=== PATIENT | male | born 1945 | race Caucasian/White ===

== ENCOUNTER 2022-05-30 20:01 | Inpatient (IN) | payer MEDICARE ==
[~2022-05-30] VITALS: Ht 185.4 cm; Wt 119.7 kg
[~2022-05-30 20:01] MED LIST: ALBU0.0912 INH; ASPI-1205 PO; DEC1 PO
[2022-05-30 20:09] VITALS: BP 152/84
--- NOTE | 2022-05-30 20:31 | NUR ---
Patient ambulated to bed 1.
--- NOTE | 2022-05-30 20:33 | NUR ---
DR DAVENPORT AT BEDSIDE FOR EXAM
--- NOTE | 2022-05-30 20:37 | NUR ---
C/O COVID-19 SX X 1 DAY. PT STATES HISTORT OF COVID MORE THAN 1 YEAR AGO AND SAYS HE WAS HOSPITALIZED. C/O H/A, SOB, COUGH, AND FEVER SINCE RESPIRATIONS ARE NOW REGULAR AND UNLABORED PMHx: DENIES
[2022-05-30 21:06] LABS: BASOPHILS # (AUTO) 0.1 K/uL (0.00-0.22); EOSINOPHILS # (AUTO) 0.1 K/uL (0-0.4); EOSINOPHILS % (AUTO) 1.3 % (0.0-4.0); HEMOGLOBIN 15.9 g/dL (12.0-18.0); LYMPHOCYTES # (AUTO) 0.8 K/uL (2.0-11.5); LYMPHOCYTES % (AUTO) 10.1 % (20.5-51.1); MEAN CORPUSCULAR HEMOGLOBIN 28 pg (27-31); MEAN CORPUSCULAR HGB CONC 33 g/dL (33-37); MEAN CORPUSCULAR VOLUME 84.9 fL (80-94); MONOCYTES # (AUTO) 1.2 K/uL (0.8-1.0); MONOCYTES % (AUTO) 15.2 % (1.7-9.3); NEUTROPHILS # (AUTO) 5.6 K/uL (1.8-7.7); NEUTROPHILS % (AUTO) 72.4 % (42.2-75.2); PLATELET COUNT (AUTO) 185 K/uL (140-450); RED BLOOD CELL COUNT(AUTO) 5.65 MIL/uL (4.20-6.10); RED CELL DISTRIBUTION WIDTH 14.5 % (11.6-13.7); WHITE BLOOD COUNT (AUTO) 7.8 K/uL (4.8-10.8)
[2022-05-30 21:26] LABS: ALBUMIN 3.5 g/dL (3.4-5.0); ANION GAP 15.6 (8-16); ASPARTATE AMINOTRANSFERASE 20 U/L (15-37); CARBON DIOXIDE 25.2 mmol/L (21-32); CHLORIDE 105 mmol/L (98-107); GLUCOSE 159 mg/dL (74-106); POTASSIUM 3.8 mmol/L (3.5-5.1); SODIUM SERUM 142 mmol/L (136-145); TOTAL BILIRUBIN 0.7 mg/dL (0.0-1.0); UREA NITROGEN, BLOOD 14 mg/dL (7-18)
[2022-05-30] MEDS ORDERED: cefTRIAXone 1,000 MG VIAL ONE (21:31)
[2022-05-30] MEDS ORDERED: ALBUTEROL HFA MDI 90 MCG/ACTUATION 8 GM INH PRN (21:55)
[2022-05-30] MEDS ORDERED: guaiFENesin DM 200/20 MG-10 ML 10 ML UDC PO PRN (21:55)
[2022-05-30] MEDS ORDERED: POTASSIUM CHLORIDE 10 MEQ TABER PO PRN (21:55)
[2022-05-30] MEDS ORDERED: ZOLPIDEM 5 MG TAB PO PRN (21:55)
[2022-05-30] MEDS ORDERED: DOCUSATE SODIUM 100 MG GELCAP PO PRN (21:55)
[2022-05-30] MEDS ORDERED: HYDROcodone/APAP 7.5/325 MG 1 TAB PO PRN (21:55)
[2022-05-30] MEDS ORDERED: ONDANSETRON 4 MG/2 ML VIAL IM/IVP PRN (21:55)
[2022-05-30] MEDS ORDERED: ACETAMINOPHEN 325 MG TAB PO PRN (21:55)
--- NOTE | 2022-05-30 23:10 | NUR ---
SWABS OBTAINED AND SENT TO LAB
[2022-05-30 23:17] LABS: MAGNESIUM 1.8 mg/dL (1.8-2.4); PHOSPHORUS 2.4 mg/dL (2.5-4.9)
--- NOTE | 2022-05-31 | NUR ---
ASSISTED WITH POSITIONING FOR COMFORT. WARM BLANKETS GIVEN, LIGHTS TURNED DOWN
[2022-05-31 00:08] LABS: PROTHROMBIN TIME 11.2 secs (10.8-13.4)
--- NOTE | 2022-05-31 02:00 | NUR ---
RESTING COMFORTABLY WITH EYES CLOSED. RESPIRATIONS REGULAR AND UNLABORED
[2022-05-31 05:50] LABS: BASOPHILS # (AUTO) 0.1 K/uL (0.00-0.22); BASOPHILS % (AUTO) 0.9 % (0.0-2.0); EOSINOPHILS # (AUTO) 0.1 K/uL (0-0.4); EOSINOPHILS % (AUTO) 0.7 % (0.0-4.0); HEMATOCRIT 46.4 % (36-52); HEMOGLOBIN 15.4 g/dL (12.0-18.0); LYMPHOCYTES # (AUTO) 1.1 K/uL (2.0-11.5); LYMPHOCYTES % (AUTO) 14.7 % (20.5-51.1); MEAN CORPUSCULAR HEMOGLOBIN 28 pg (27-31); MEAN CORPUSCULAR HGB CONC 33 g/dL (33-37); MEAN CORPUSCULAR VOLUME 85.2 fL (80-94); MONOCYTES # (AUTO) 1.2 K/uL (0.8-1.0); MONOCYTES % (AUTO) 16.7 % (1.7-9.3); NEUTROPHILS # (AUTO) 4.9 K/uL (1.8-7.7); PLATELET COUNT (AUTO) 171 K/uL (140-450); RED BLOOD CELL COUNT(AUTO) 5.44 MIL/uL (4.20-6.10); RED CELL DISTRIBUTION WIDTH 14.2 % (11.6-13.7); WHITE BLOOD COUNT (AUTO) 7.3 K/uL (4.8-10.8)
[2022-05-31 05:52] LABS: ANION GAP 14.6 (8-16); CARBON DIOXIDE 26.1 mmol/L (21-32); CHLORIDE 105 mmol/L (98-107); CREATININE 0.8 mg/dL (0.6-1.3); GLUCOSE 133 mg/dL (74-106); POTASSIUM 3.7 mmol/L (3.5-5.1); SODIUM SERUM 142 mmol/L (136-145); UREA NITROGEN, BLOOD 13 mg/dL (7-18)
--- NOTE | 2022-05-31 06:00 | NUR ---
Edward eastman in ED - 05/31/22 at 0619 by JOVANNI RESTING IN BED WITH EYES CLOSED. RESPIRATIONS REGULAR AND UNLABORED. PT REMAINS ON C-PAP, TOLERATING WELL
--- NOTE | 2022-05-31 06:00 | NUR ---
RESTING COMFORTABLY WITH EYES CLOSED. AWAKENS WITH EASE THEN RETURNS TO RESTING WITH EYES CLOSED
--- NOTE | 2022-05-31 07:32 | NUR ---
RECIEVED REPORT FROM FITO CLEMENTS.
[2022-05-31] MEDS: ASCORBIC ACID 500 MG TAB PO SCH (10:00)
--- NOTE | 2022-05-31 10:00 | NUR ---
PATIENT HAS BEEN SCREENED AND CATEGORIZED LOW NUTRITION RISK. PATIENT WILL BE SEEN WITHIN 7 DAYS OF ADMISSION. 06/06/[address]
[2022-05-31] MEDS: ZINC SULF 220 MG CAP PO SCH (10:01)
[2022-05-31] MEDS: PANTOPRAZOLE 40 MG TABEC PO SCH (10:02)
[2022-05-31] MEDS: guaiFENesin 600 MG TABER PO SCH ×2 (12:26→20:08)
--- NOTE | 2022-05-31 14:22 | NUR ---
DC PLANNING: THE PATIENT PRESENTED WITH C/O FEVERS AND CHILLS, PRIOR H/O COVID PNEUMONIA AND ENLARGED PROSTATE. HR IN THE 90s, O2 2L NC WITH SATS AT 94%. CRP 9, STARTED ON DECADRON, ALBUTEROL, GIVEN ROCEPHIN X 1. COVID RAPID AND PCR POSITIVE, CXR PER ED NOTES SHOW POSSIBLE PATCHY INFILTRATES. CM SPOKE WITH THE PATIENTS SON LUNA BY PHONE AND CONFIRMED THE PATIENTS ADDRESS AND PHONE NUMBER. THE PATIENT LIVES WITH HIS , SON AND GRANDDAUGHTER IN A SINGLE STORY HOUSE. HE IS INDEPENDENT IN ALL ACTIVITIES INCLUDING AMBULATION AND ADL'S. HE NO LONGER HAS THE O2 FROM HIS LAST ADMISSION AND HAS NO OTHER DME IN THE HOUSE. NO H/O HOME HEALTH AND NO REPORTED WEAKNESS FROM HIS COVID DX. THE PATIENT WILL DC HOME WITH FAMILY WHEN CLINICALLY STABLE, NO NEEDS IDENTIFIED AT THIS TIME. CM WILL FOLLOW.
--- NOTE | 2022-05-31 17:59 | NUR ---
Patient will be admitted to care of DR BLACKMON. Admited to TELEMETRY. Will go to room 113. Belongings list completed. Report to
[2022-05-31 18:10] VITALS: BP 110/80
--- NOTE | 2022-05-31 18:10 | NUR ---
RECEIVED PT FROM ER VIA [facility]. REPORT GIVEN BY ANITA THRU PHONE. PT IS ALERT, AWAKE, ABLE TO MAKE NEEDS KNOWN. ON O2 2L NC, BREATHING SYMMETRICAL. NOTED WITH EPISODES OF DRY COUGH. NO C/O PAIN AT THIS TIME. LAC 18G ON SALINE LOCK. DROPLET PRECAUTIONS OBSERVED. CALL LIGHT WITHIN REACH. ALL SAFETY MEASURES IN PLACE.
--- NOTE | 2022-05-31 18:15 | NUR ---
TRIED TO GIVE REPORT TO GALLO AND SHE REFUSED. INTERNAL AUDIT CONSULTANT NOTFIED.
--- NOTE | 2022-05-31 19:14 | NUR ---
ENDORSED PT TO METAL OR WOOD BLOCKER NURSE FOR CONTINUITY OF CARE.
--- NOTE | 2022-05-31 19:15 | NUR ---
RECEIVED BEDSIDE REPORT FROM DAY RN. PT IS AAOX4. [place] SPEAKING UNDERSTANDS SOME ROMANSH. RESPIRATIONS ARE EQUAL AND UNLABORED ON 2L NC SAT WELL 97% +PRODUCTIVE COUGH. SKIN IS WARM DRY AND INTACT. PT IS AMBULATORY AND ABLE TO MAKE NEEDS KNOWN. IV ON LAC 18G SL. ISOLATION IN PLACE. POC REVIEWED WITH PT. ALL SAFETY MEASURES ARE IN PLACE. WILL CONTINUE TO MONITOR.
[2022-05-31 20:00] VITALS: BP 128/78
--- NOTE | 2022-05-31 20:08 | NUR ---
vital signs are stable. aster medications given per orders. vital signs are stable. educated pt for need to collect UA specimen cup given to pt. will continue to monitor.
[2022-05-31 21:35] LABS: BILIRUBIN,URINE NEGATIVE (NEGATIVE); BLOOD, URINE TRACE-I (NEGATIVE); COLOR,URINE YELLOW (YELLOW); LEUKOCYTE ESTERASE ,URINE TRACE (NEGATIVE); NITRITE, URINE NEGATIVE (NEGATIVE); UGLUCOSE NEGATIVE (NEGATIVE)
[2022-05-31 21:41] LABS: APPEARANCE,URINE HAZY (CLEAR)
[2022-05-31 21:51] LABS: RBC,URINE 0-5 /HPF (0-5); WBC,URINE 0-5 /HPF (0-5)
[2022-05-31 21:52] LABS: BARBITURATE, URINE NEGATIVE ng/ml (NEG <=200); BENZODIAZEPINE, URINE NEGATIVE ng/mL (NEG <=200); CANNABINOID, URINE NEGATIVE ng/mL (NEG <=50); COCAINE, URINE NEGATIVE ng/mL (NEG <=300); OPIATE, URINE NEGATIVE ng/mL (NEG <=2000); PHENCYCLIDINE SCREEN,URINE NEGATIVE ng/mL (NEG <=25)
--- NOTE | 2022-05-31 22:29 | NUR ---
ROUNDS MADE. PT RESTING IN BED TALKING ON THE PHONE. ALL NEEDS MET. WILL CONTINUE TO MONITOR
[2022-06-01] VITALS: BP 130/85
--- NOTE | 2022-06-01 00:02 | NUR ---
VITAL SIGNS ARE WITHIN NORMAL LIMITS. ALL SAFETY MEASURES ARE IN PLACE. WILL CONTINUE TO MONITOR.
--- NOTE | 2022-06-01 02:57 | NUR ---
ROUNDS MADE. PT APPEARS TO BE ASLEEP. RESTING IN BED WITH EYES CLOSED. CHEST RISE AND FALL NOTED.
[2022-06-01 04:00] VITALS: BP 141/86
--- NOTE | 2022-06-01 04:00 | NUR ---
VITAL SIGNS ARE WITHIN NORMAL LIMITS. ALL SAFETY MEASURES ARE IN PLACE. WILL CONTINUE TO MONITOR.
[2022-06-01 07:10] LABS: BASOPHILS % (AUTO) 0.4 % (0.0-2.0); EOSINOPHILS % (AUTO) 0.4 % (0.0-4.0); HEMATOCRIT 46.4 % (36-52); HEMOGLOBIN 15.6 g/dL (12.0-18.0); LYMPHOCYTES % (AUTO) 13.9 % (20.5-51.1); MEAN CORPUSCULAR HEMOGLOBIN 28 pg (27-31); MEAN CORPUSCULAR HGB CONC 34 g/dL (33-37); MEAN CORPUSCULAR VOLUME 84.5 fL (80-94); MONOCYTES # (AUTO) 0.9 K/uL (0.8-1.0); MONOCYTES % (AUTO) 12.5 % (1.7-9.3); NEUTROPHILS # (AUTO) 5.4 K/uL (1.8-7.7); NEUTROPHILS % (AUTO) 72.8 % (42.2-75.2); PLATELET COUNT (AUTO) 199 K/uL (140-450); RED CELL DISTRIBUTION WIDTH 14.3 % (11.6-13.7); WHITE BLOOD COUNT (AUTO) 7.4 K/uL (4.8-10.8)
[2022-06-01 07:18] LABS: ANION GAP 13.4 (8-16); CHLORIDE 105 mmol/L (98-107); CREATININE 0.7 mg/dL (0.6-1.3); GLUCOSE 126 mg/dL (74-106); POTASSIUM 4.4 mmol/L (3.5-5.1); SODIUM SERUM 142 mmol/L (136-145); UREA NITROGEN, BLOOD 14 mg/dL (7-18)
--- NOTE | 2022-06-01 07:20 | NUR ---
SBAR REPORT RECEIVED FROM NIGHT RN, ALL CARES ASSUMED.
--- NOTE | 2022-06-01 07:21 | NUR ---
GAVE BEDSIDE REPORT TO DAY RN. PT ENDORSED IN STABLE CONDITION.
[2022-06-01 08:00] VITALS: BP 148/77
[2022-06-01 08:17] VITALS: BP 141/86
[2022-06-01] MEDS: guaiFENesin 600 MG TABER PO SCH (09:52)
[2022-06-01] MEDS: PANTOPRAZOLE 40 MG TABEC PO SCH (09:52)
[2022-06-01] MEDS: ZINC SULF 220 MG CAP PO SCH (09:53)
[2022-06-01] MEDS: ASCORBIC ACID 500 MG TAB PO SCH (09:53)
--- NOTE | 2022-06-01 12:24 | NUR ---
PT DISCHARGED HOME. DISCHARGE INSTRUCTIONS REVIEWED WITH PT, VERBALIZES UNDERSTANDING, ALL QUESTIONS ANSWERED. IV CATHETER REMOVED AT TIME OF DISCHARGE. THIS NURSE ASSISTED PT TO PRIVATE VEHICLE AT TIME OF DISCHARGE.
== END 2022-06-01 12:10 | disposition home or self-care (01) | DRG 871 ==
LOC: MED 20:01 → MTU 22:05
PROVIDERS: ADMIT Student in an Organized Health Care Education/Training Program; ATTEND Student in an Organized Health Care Education/Training Program
DX: A41.9 Sepsis, unspecified organism (principal); J12.82 Pneumonia due to coronavirus disease 2019; U07.1 COVID-19; J96.01 Acute respiratory failure with hypoxia; E66.9 Obesity, unspecified; I10 Essential (primary) hypertension; Z90.49 Acquired absence of other specified parts of digestive tract; Z79.82 Long term (current) use of aspirin; Z79.899 Other long term (current) drug therapy; Z68.34 Body mass index [BMI] 34.0-34.9, adult
CPT/HCPCS: 36415; 71045; 80048; 80053; 80305; 81001; 83615; 83690; 83735; 83880; 84100; 84484; 85025; 85379; 85610; 85651; 85730; 86140; 87081; 87635-QW; 93005; 96365; 99285; J0696; J1644; Q0092

== ENCOUNTER 2024-01-31 16:53 | Inpatient (IN) | payer MEDICARE ==
[~2024-01-31] VITALS: Ht 188 cm; Wt 118.8 kg
[~2024-01-31 16:53] MED LIST changes: -ASPI-1205 PO; -DEC1 PO
[2024-01-31 16:58] VITALS: BP 156/84; PULSE 87; RESP 21; TEMP 99.3; O2SAT 93
[2024-01-31] MEDS: cefTRIAXone 1,000 MG in DEXT 5% MINI-BAG PLUS 50 ML IV ONE (17:10)
[2024-01-31 17:36] LABS: BASOPHILS # (AUTO) 0.1 K/uL (0.00-0.22); EOSINOPHILS # (AUTO) 0.4 K/uL (0-0.4); EOSINOPHILS % (AUTO) 6.2 % (0.0-4.0); HEMATOCRIT 46.7 % (36-52); HEMOGLOBIN 15.7 g/dL (12.0-18.0); LYMPHOCYTES # (AUTO) 0.7 K/uL (2.0-11.5); LYMPHOCYTES % (AUTO) 10.7 % (20.5-51.1); MEAN CORPUSCULAR HEMOGLOBIN 29 pg (27-31); MEAN CORPUSCULAR HGB CONC 34 g/dL (33-37); MONOCYTES % (AUTO) 15.6 % (1.7-9.3); NEUTROPHILS # (AUTO) 4.5 K/uL (1.8-7.7); NEUTROPHILS % (AUTO) 66.5 % (42.2-75.2); PLATELET COUNT (AUTO) 160 K/uL (140-450); RED CELL DISTRIBUTION WIDTH 14.6 % (11.6-13.7); WHITE BLOOD COUNT (AUTO) 6.7 K/uL (4.8-10.8)
[2024-01-31 17:44] LABS: ANION GAP 11.2 (8-16); CALCIUM 7.8 mg/dL (8.5-10.1); CARBON DIOXIDE 29.8 mmol/L (21-32); CHLORIDE 100 mmol/L (98-107); CREATININE 0.9 mg/dL (0.6-1.3); GLUCOSE 266 mg/dL (74-106); SODIUM SERUM 137 mmol/L (136-145); UREA NITROGEN, BLOOD 11 mg/dL (7-18)
[2024-01-31 17:54] LABS: LACTIC ACID 1.9 mmol/L (0.4-2.0)
[2024-01-31 17:59] LABS: FLU A ANTIGEN negative (NEGATIVE); FLU B ANTIGEN NEGATIVE (NEGATIVE)
[2024-01-31] MEDS ORDERED: cefTRIAXone 1,000 MG VIAL ONE (18:16)
[2024-01-31] MEDS ORDERED: ALBUTEROL 0.083% 2.5 MG/3 ML NEBU INH PRN (18:50)
[2024-01-31] MEDS ORDERED: ACETAMINOPHEN 325 MG TAB PO PRN (18:50)
[2024-01-31] MEDS: DEXAMETHASONE 4 MG/ML VIAL IVP SCH (19:15)
[2024-01-31 19:54] LABS: APPEARANCE,URINE CLEAR (CLEAR); BILIRUBIN,URINE NEGATIVE (NEGATIVE); BLOOD, URINE NEGATIVE (NEGATIVE); COLOR,URINE YELLOW (YELLOW); LEUKOCYTE ESTERASE ,URINE NEGATIVE (NEGATIVE); NITRITE, URINE NEGATIVE (NEGATIVE); PROTEIN,URINE NEGATIVE (NEGATIVE); UGLUCOSE 1+ (NEGATIVE)
[2024-01-31 23:40] VITALS: PULSE 77
[2024-02-01] VITALS (8 sets, daily range): BP systolic 127–150; BP diastolic 73–89; PULSE 68–87; RESP 17–20; TEMP 97.2–98; O2SAT 96–99
[2024-02-01 06:40] LABS: BASOPHILS % (AUTO) 0.3 % (0.0-2.0); EOSINOPHILS % (AUTO) 0.2 % (0.0-4.0); HEMATOCRIT 46.9 % (36-52); HEMOGLOBIN 15.8 g/dL (12.0-18.0); LYMPHOCYTES # (AUTO) 0.6 K/uL (2.0-11.5); LYMPHOCYTES % (AUTO) 11.1 % (20.5-51.1); MEAN CORPUSCULAR HEMOGLOBIN 29 pg (27-31); MEAN CORPUSCULAR HGB CONC 34 g/dL (33-37); MONOCYTES # (AUTO) 0.4 K/uL (0.8-1.0); MONOCYTES % (AUTO) 6.5 % (1.7-9.3); NEUTROPHILS # (AUTO) 4.8 K/uL (1.8-7.7); NEUTROPHILS % (AUTO) 81.9 % (42.2-75.2); PLATELET COUNT (AUTO) 174 K/uL (140-450); RED BLOOD CELL COUNT(AUTO) 5.52 MIL/uL (4.20-6.10); RED CELL DISTRIBUTION WIDTH 14.6 % (11.6-13.7); WHITE BLOOD COUNT (AUTO) 5.8 K/uL (4.8-10.8)
[2024-02-01 07:12] LABS: ALANINE AMINOTRANSFERASE 22 U/L (12-78); ALKALINE PHOSPHATASE 72 U/L (50-136); ANION GAP 13.1 (8-16); ASPARTATE AMINOTRANSFERASE 15 U/L (15-37); CALCIUM 8.2 mg/dL (8.5-10.1); CARBON DIOXIDE 26.2 mmol/L (21-32); CHLORIDE 102 mmol/L (98-107); CREATININE 0.9 mg/dL (0.6-1.3); GLUCOSE 271 mg/dL (74-106); POTASSIUM 4.3 mmol/L (3.5-5.1); SODIUM SERUM 137 mmol/L (136-145); TOTAL BILIRUBIN 0.5 mg/dL (0.0-1.0); TOTAL PROTEIN, SERUM 6.6 g/dL (6.4-8.2); UREA NITROGEN, BLOOD 11 mg/dL (7-18)
[2024-02-01] MEDS ORDERED: LOVENOX 1MG/KG Q24H SUBQ SCH (08:05)
[2024-02-01] MEDS ORDERED: remdesivir COMMUNICATION ORDER 1 EA MISC MC PRN (08:05)
[2024-02-01] MEDS ORDERED: remdesivir CLINICAL MONITORING 1 EA MISC MC PRN (08:20)
[2024-02-01] MEDS ORDERED: REMDESIVIR. 200 MG in NACL 0.9% 100 ML IV ONE (08:20)
[2024-02-01] MEDS ORDERED: ENOXAPARIN 40 MG/0.4 ML SYR SUBQ SCH (09:00)
[2024-02-01] MEDS: ENOXAPARIN 120 MG/0.8 ML SYR SUBQ SCH (09:52)
[2024-02-01] MEDS: REMDESIVIR. 200 MG in NACL 0.9% 100 ML IV SCH (10:55)
[2024-02-01] MEDS ORDERED: ROB PO (12:49)
[2024-02-01] MEDS ORDERED: AZIT250T11 PO (12:49)
[2024-02-01] MEDS ORDERED: DEC4 PO (12:49)
[2024-02-01] MEDS ORDERED: NIRM1TAB9 PO (14:21)
[2024-02-02] MEDS ORDERED: REMDESIVIR. 100 MG in NACL 0.9% 100 ML IV SCH (11:00)
== END 2024-02-01 18:48 | disposition home or self-care (01) | DRG 177 ==
LOC: MED 16:53 → MTU 18:56
PROVIDERS: ADMIT Student in an Organized Health Care Education/Training Program; ATTEND Student in an Organized Health Care Education/Training Program
PROC: XW033E5 Introduction of Remdesivir Anti-infective into Peripheral Vein, Percutaneous Approach, New Technology Group 5 (ICD-10-PCS; principal; 2024-02-01)
DX: U07.1 COVID-19 (principal); J12.82 Pneumonia due to coronavirus disease 2019; J96.01 Acute respiratory failure with hypoxia; E11.9 Type 2 diabetes mellitus without complications; E78.5 Hyperlipidemia, unspecified; I10 Essential (primary) hypertension; E66.9 Obesity, unspecified; Z68.33 Body mass index [BMI] 33.0-33.9, adult; Z90.49 Acquired absence of other specified parts of digestive tract
CPT/HCPCS: 36415; 71045; 80048; 80053; 81003; 83605; 83880; 84484; 85025; 87040; 87081; 87086; 93005; 96365; 96375; 99285; J0696; J1100; J1650; Q0092

== ENCOUNTER 2024-02-18 17:47 | Observation (INO) | payer MEDICARE ==
[~2024-02-18] VITALS: Ht 188 cm; Wt 118.8 kg
[~2024-02-18 17:47] MED LIST changes: -ALBU0.0912 INH; +AZIT250T11 PO; +NIRM1TAB9 PO; +ROB PO
[2024-02-18 17:59] VITALS: BP 139/75; PULSE 114; RESP 25; TEMP 100; O2SAT 93
[2024-02-18] MEDS: ASPIRIN 325 MG TAB PO ONE (18:16)
[2024-02-18 18:29] LABS: BASOPHILS # (AUTO) 0.1 K/uL (0.00-0.22); BASOPHILS % (AUTO) 0.8 % (0.0-2.0); EOSINOPHILS # (AUTO) 0.1 K/uL (0-0.4); EOSINOPHILS % (AUTO) 0.6 % (0.0-4.0); HEMATOCRIT 46.9 % (36-52); HEMOGLOBIN 16.1 g/dL (12.0-18.0); LYMPHOCYTES % (AUTO) 7.8 % (20.5-51.1); MEAN CORPUSCULAR HEMOGLOBIN 28 pg (27-31); MEAN CORPUSCULAR HGB CONC 34 g/dL (33-37); MEAN CORPUSCULAR VOLUME 82.9 fL (80-94); MONOCYTES # (AUTO) 1.8 K/uL (0.8-1.0); MONOCYTES % (AUTO) 14.1 % (1.7-9.3); NEUTROPHILS # (AUTO) 9.8 K/uL (1.8-7.7); NEUTROPHILS % (AUTO) 76.7 % (42.2-75.2); PLATELET COUNT (AUTO) 170 K/uL (140-450); RED BLOOD CELL COUNT(AUTO) 5.66 MIL/uL (4.20-6.10); RED CELL DISTRIBUTION WIDTH 15.2 % (11.6-13.7); WHITE BLOOD COUNT (AUTO) 12.7 K/uL (4.8-10.8)
[2024-02-18 18:48] LABS: ALANINE AMINOTRANSFERASE 55 U/L (12-78); ALBUMIN 2.6 g/dL (3.4-5.0); ALKALINE PHOSPHATASE 88 U/L (50-136); ANION GAP 14.3 (8-16); ASPARTATE AMINOTRANSFERASE 21 U/L (15-37); CALCIUM 8.1 mg/dL (8.5-10.1); CHLORIDE 99 mmol/L (98-107); GLUCOSE 254 mg/dL (74-106); POTASSIUM 4.3 mmol/L (3.5-5.1); SODIUM SERUM 135 mmol/L (136-145); TOTAL PROTEIN, SERUM 6.4 g/dL (6.4-8.2); UREA NITROGEN, BLOOD 15 mg/dL (7-18)
[2024-02-18 19:03] LABS: LACTIC ACID 2.4 mmol/L (0.4-2.0)
[2024-02-18] MEDS: NACL 0.9% 1,000 ML IV ONE (19:16)
[2024-02-18] MEDS ORDERED: HYDROcodone/APAP 5/325 MG 1 TAB TAB PO PRN (23:40)
[2024-02-18] MEDS ORDERED: LORazepam 1 MG TAB PO PRN (23:40)
[2024-02-18] MEDS ORDERED: MORPHINE SULFATE 4 MG/ML SYR IVP PRN (23:40)
[2024-02-18] MEDS ORDERED: ACETAMINOPHEN 325 MG TAB PO PRN (23:40)
[2024-02-18] MEDS ORDERED: MAG SULF 2000 MG/WATER PREMIX 50 ML IV PRN (23:40)
[2024-02-18] MEDS ORDERED: POTASSIUM CHLORIDE 10 MEQ TABER PO PRN (23:40)
[2024-02-18] MEDS ORDERED: ZOLPIDEM 5 MG TAB PO PRN (23:40)
[2024-02-18] MEDS ORDERED: KCL 20 MEQ IN 100 mL PREMIX 200 ML IV PRN (23:40)
[2024-02-18] MEDS ORDERED: ONDANSETRON 4 MG/2 ML VIAL IVP PRN (23:40)
[2024-02-19] VITALS (9 sets, daily range): BP systolic 110–152; BP diastolic 48–76; PULSE 64–121; RESP 18–20; TEMP 97.2–99.2; O2SAT 95–98
[2024-02-19 05:33] LABS: BASOPHILS # (AUTO) 0.1 K/uL (0.00-0.22); BASOPHILS % (AUTO) 0.6 % (0.0-2.0); EOSINOPHILS # (AUTO) 0.2 K/uL (0-0.4); EOSINOPHILS % (AUTO) 2.6 % (0.0-4.0); HEMATOCRIT 44.2 % (36-52); HEMOGLOBIN 14.6 g/dL (12.0-18.0); LYMPHOCYTES # (AUTO) 1.1 K/uL (2.0-11.5); LYMPHOCYTES % (AUTO) 11.8 % (20.5-51.1); MEAN CORPUSCULAR HEMOGLOBIN 28 pg (27-31); MEAN CORPUSCULAR HGB CONC 33 g/dL (33-37); MEAN CORPUSCULAR VOLUME 84.6 fL (80-94); MONOCYTES # (AUTO) 1.7 K/uL (0.8-1.0); MONOCYTES % (AUTO) 17.6 % (1.7-9.3); NEUTROPHILS # (AUTO) 6.3 K/uL (1.8-7.7); NEUTROPHILS % (AUTO) 67.4 % (42.2-75.2); PLATELET COUNT (AUTO) 153 K/uL (140-450); RED BLOOD CELL COUNT(AUTO) 5.23 MIL/uL (4.20-6.10); WHITE BLOOD COUNT (AUTO) 9.4 K/uL (4.8-10.8)
[2024-02-19 05:53] LABS: ANION GAP 10.4 (8-16); CALCIUM 7.8 mg/dL (8.5-10.1); CARBON DIOXIDE 27.2 mmol/L (21-32); CHLORIDE 105 mmol/L (98-107); CREATININE 0.7 mg/dL (0.6-1.3); GLUCOSE 149 mg/dL (74-106); POTASSIUM 3.6 mmol/L (3.5-5.1); SODIUM SERUM 139 mmol/L (136-145); UREA NITROGEN, BLOOD 13 mg/dL (7-18)
[2024-02-19] MEDS: ASPIRIN 81 MG TAB.CHEW PO SCH (11:18)
[2024-02-19] MEDS: ATORVASTATIN 20 MG TAB PO SCH (11:18)
[2024-02-19] MEDS ORDERED: ASPI81CT95 PO (17:17)
[2024-02-19] MEDS ORDERED: ATOR20TA40 PO (17:17)
== END 2024-02-19 17:55 | disposition home or self-care (01) ==
LOC: MED 17:47 → MTU 23:37
PROVIDERS: ADMIT Student in an Organized Health Care Education/Training Program; ATTEND Student in an Organized Health Care Education/Training Program
DX: R07.89 Other chest pain (principal); R79.89 Other specified abnormal findings of blood chemistry; I10 Essential (primary) hypertension; J96.00 Acute respiratory failure, unspecified whether with hypoxia or hypercapnia; E78.5 Hyperlipidemia, unspecified
CPT/HCPCS: 36415; 71045; 71275; 80048; 80053; 83605; 83735; 83880; 84484; 85025; 85379; 87040; 87081; 93005; 96360; 96372; 99285; G0378; Q9967